=== PATIENT | female | born 1970 | race Caucasian/White ===

== ENCOUNTER → 2020-03-25 11:20 | Outpatient (CLI) | payer BC, SELFPAY ==
--- NOTE | 2020-03-24 10:24 | HP.PCM_ITS ---
History and Physical Date of Admission: 03/25/20 HISTORY AND PHYSICAL ? Anu Hameed 1970 ? ? REFERRING PHYSICIAN: Danitza Hernandez MD ? CHIEF COMPLAINT: Mammogram Abnormality ? HPI: The patient is a 50 year old female presents with abnormal right breast radiographs. She denies previous breast biopsies. She denies palpable breast masses. She denies nipple discharge. She denies breast pain. She denies previous breast infections She had nipple piercings which she discontinued about 2 years ago. ? Mammograms 03/18/2020 There are a grouped heterogeneous calcifications in the right breast at 9 o'clock in the retroareolar region. No other significant masses or calcifications are seen in the [address] IMPRESSION: SUSPICIOUS FINDING - BIOPSY SHOULD BE CONSIDERED The grouped heterogeneous calcifications in the right breast are suspicious of malignancy. ?A stereotactic biopsy is recommended. ? ? PAST MEDICAL HISTORY: TOB use ? ? PAST SURGICAL HISTORY Procedure Laterality Date ? SECTION HX ? ? ? TONSILLECTOMY HX ? ? Cervical biopsies and conization ? ? Current Outpatient Medications Medication Sig ? buPROPion SR (ZYBAN SR; WELLBUTRIN SR) 150 mg 12 hr tablet 1 tablet ? diazePAM (VALIUM) 5 mg tablet Take 1 tablet by mouth available for use prior to procedure for 1 day. ? ? ALLERGIES: Epi E-Z Pen and Penicillin V ? PERSONAL HISTORY: Social History ? Tobacco Use ? Smoking status: Current Every Day Smoker ? ? Packs/day: 0.50 ? Smokeless tobacco: Never Used Substance Use Topics ? Alcohol use: Yes ? ? Comment: occ ? Drug use: No ? FAMILY HISTORY: No breast or ovarian cancer known in family, grandparents had colon cancer and bone cancer ? ? REVIEW OF SYSTEMS: General - denies fevers, denies anorexia, denies weight loss Cardiovascular - denies chest pain, denies history of [place] Pulmonary - denies shortness of breath, denies coughing up blood Gastrointestinal - denies abdominal pain, denies hematemesis, hemorrhoids with BRBPR, alternating constipation and diarrhea intermittently depending of food she eats Neurological - denies seizures, denies chronic numbness/weakness of extremities, denies chronic headaches Genitourinary - denies burning with urination, denies blood in urine Hematological - denies spontaneous/prolonged bleeding Skin - denies nonhealing skin wounds Musculoskeletal - no new muscle/bone pain Endocrine - denies diabetes, no thyroid problems Psychological ? trying to quit TOB use on wellbutrin for this, denies [place] ucinations Obstetrical - Menarche onset at age 16, , breast feeding - denies, first at age 21, BCP use initially at age 19 for 3 years, LMP 03/18 - regular ? ? PHYSICAL EXAMINATION: General: The patient is 50 year old female, well nourished, well hydrated in no acute distress. The patient is oriented to time, place, and person. VITALS: Pulse 107, temperature 36.8 ?C (98.3 ?F), temperature source Temporal, resp. rate 18, weight 66.7 kg (147 lb), last menstrual period 03/18/2018, SpO2 96 %. Body mass index is 29.69 kg/m?. Head ? Normocephalic. EOM intact with sclera clear and no icterus noted. Mouth with mucus membranes moist. Neck - supple with no jugular venous distention noted. Trachea is midline. No carotid bruits noted. No thyroid enlargement or thyroid nodules detected. No masses noted. Chest/breast ? no asymmetry of breasts noted, no suspicious skin lesions noted, no nipple discharge and both nipples everted, no breast masses noted Lungs ? clear to auscultation. Normal breath sounds. No rales/rhonchi/wheezing noted. No labored breathing noted, such as retractions. No cough heard. Heart ? normal S1 and S2 auscultated. No rubs/clicks/murmurs noted. Regular rate. Abdomen ? soft and benign. Normal bowel sounds No abdominal bruits noted. Difficult to determine if any masses or organomegaly due to body habitus. Extremities ? no calf tenderness noted. No pitting edema noted. Skin ? normal skin integrity. Lymph ? no cervical adenopathy detected, no supraclavicular adenopathy detected, no axillary adenopathy detected Neurological ? gait normal, no focal deficits noted Psych ? calm and appropriate RADIOLOGIC STUDIES: As Noted ? IMPRESSION: abnormal right breast mammograms ? PLAN: I have discussed the above with the patient. I have reviewed the radiographs with the patient and pointed out the abnormalities to her I have offered right breast stereotactic biopsy I have explained the procedure to the patient. I have counseled the patient as to the risks of the procedure, including but not limited to: Infection (increased due to TOB use), bleeding, injury to any blood vessels/nerves, scar tissue, wound infections, complications of anesthesia, etc. ? the patient understands. The patient wishes to proceed. I have answered all questions to the patient?s satisfaction and the patient has no further questions. ? . Diagnoses: (R92.8) Abnormal mammogram (primary encounter diagnosis) (Z72.0) Tobacco use (F41.9) Anxiety Return to Clinic: The patient is instructed to follow-up with me after the procedure ? Precious Gallego MD
--- NOTE | 2020-03-25 13:00 | BRBX_PTH ---
PATIENT: SHERLYN PARRA LOC: [facility] U#:[id number] AGE/SX: 55/F ROOM: RE03/25/[address]: Dr. Precious Gallego MD : 1970 BED: DIS: SPEC #: [id number] RECD: 03/25/20 13:31 STATUS: LAURY TIP #: [id number] KAREN: 03/25/20 13:[address]: Precious Gallego DEPT: SURGICAL PATHOLOGY RECD BY: Flori Ramirez Tissues: Right breast, NOS Procedures: Surgery Specimen Level IV HEADER OPERATION: Right breast stereotactic biopsy PRE-OP DIAGNOSIS: Calcifications right breast 9 o'clock, retroareolar TISSUE SUBMITTED: Right breast core tissue ISCHEMIC TIME: 1 minute FIXATION TIME: 30.5 hours MICROSCOPIC DIAGNOSIS Right breast, calcification 9 o'clock, retroareolar, stereotactic core biopsy: Fibrocystic changes and intraductal hyperplasia without atypia. Focal changes consistent with radial scar. Negative for malignancy. Focal microcalcifications. See comment. SUKUMAR:clarisa 03/27/20 COMMENT Correlation with clinical, radiologic findings and appropriate follow up are necessary. Case has been reviewed in consultation with Dr. Uriostegiu who concurs with the above diagnosis. IDC:AM MICROSCOPIC DESCRIPTION Slides are reviewed. GROSS DESCRIPTION Received is one container labeled with the patient's name and not further designated. The specimen consists of multiple irregular fragments of light vance-yellow soft tissue that in aggregate measure 2.5 x 2 x 0.2 cm. The specimen is totally submitted in one cassette. / AM:clarisa 03/26/20 TC:5 CPT: 58043
--- NOTE | 2020-03-25 13:59 | PCM.OPRPT ---
Report of Operation Date of Procedure: 03/25/20 Pre-Operative Diagnosis: abnormal calcifications seen on right breast mammograms Post-Operative Diagnosis: same Surgery/Procedure Performed:: right stereotactic breast biopsy Description of Surgical Findings:: retroareolar calcifications seen on right breast mammograms Type of Anesthesia:: Local - 1% xylocaine Specimen's removed: right breast tissue Estimated Blood Loss (mL): < 1 ml Fluids Replaced: none Description of Procedure: After informed consent was given, the patient was brought into the Breast Biopsy suite. Appropriate time out protocol was followed. The patient was placed in the prone position on the stereotactic biopsy table. The patient?s right breast was then placed in the opening at the head of the biopsy table. A dermatology nurse practitioner compression mammogram was then obtained in the lateral view. The suspicious radiological lesion was thus identified. Stereo pictures of the lesion were then taken for XYZ coordinates. The Mammotome biopsy stylus was then positioned where it would be entering into the patient?s breast. The skin at this site was then cleansed with a surgical skin preparation. The skin and subcutaneous tissues at this site were then infiltrated with 1% xylocaine. A small skin incision was made with an 11 blade scalpel. The biopsy stylus was then positioned into the patient?s breast at the proper coordinates of depth. Using the Mammotome vacuum-assist device, several core samples of breast tissue were obtained. A specimen mammogram was the obtained. It revealed that the abnormal calcifications were within the specimen. I reviewed this personally and concluded that the tissue sampling was adequate. A hemostatic marker clip was then placed into the biopsy cavity and a dermatology nurse practitioner film revealed that it was properly deployed. The patient was then placed in the supine position and pressure was applied to the breast until no active bleeding was noted. A nylon suture was placed to reapproximate the skin. A unilateral mammogram in the CC and MLO view were then taken which revealed that the marker clip was in the same area as the previous suspicious lesion. The patient tolerated the procedure well and was discharged from the Breast Biopsy suite in good condition. - Complications none noted
== END ==
PROVIDERS: Referring Provider Surgery; Visit Provider Surgery
DX: N60.11 Diffuse cystic mastopathy of right breast (principal); R92.0 Mammographic microcalcification found on diagnostic imaging of breast; F17.200 Nicotine dependence, unspecified, uncomplicated
CPT/HCPCS: 19081; 88305; J7050

== ENCOUNTER 2020-04-15 10:02 | Day surgery (SDC) | payer BC, SELFPAY ==
--- NOTE | 2020-04-12 14:55 | PCM.HP.BLA ---
History and Physical Date of Admission: 04/15/20 HISTORY AND PHYSICAL ? Anu Hameed 1970 ? ? REFERRING PHYSICIAN: Danitza Hernandez MD ? CHIEF COMPLAINT: Mammogram Abnormality ? HPI: The patient is a 50 year old female s/p right stereotactic breast biopsy done on 03/25/2020 Pathology reveals: MICROSCOPIC DIAGNOSIS Right breast, calcification 9 o?clock, retroareolar, stereotactic core biopsy: Fibrocystic changes and intraductal hyperplasia without atypia. Focal changes consistent with radial scar. Negative for malignancy. Focal microcalcifications She denies previous breast biopsies. She denies palpable breast masses. She denies nipple discharge. She denies breast pain. She denies previous breast infections She had nipple piercings which she discontinued about 2 years ago. ? Mammograms 03/18/2020 There are a grouped heterogeneous calcifications in the right breast at 9 o'clock in the retroareolar region. No other significant masses or calcifications are seen in the breast. IMPRESSION: SUSPICIOUS FINDING - BIOPSY SHOULD BE CONSIDERED The grouped heterogeneous calcifications in the right breast are suspicious of malignancy. ?A stereotactic biopsy is recommended. ? ? PAST MEDICAL HISTORY: TOB use ? ? PAST SURGICAL HISTORY Procedure Laterality Date ? SECTION HX ? ? ? TONSILLECTOMY HX ? ? Cervical biopsies and conization ? ? Current Outpatient Medications Medication Sig ? buPROPion SR (ZYBAN SR; WELLBUTRIN SR) 150 mg 12 hr tablet 1 tablet ? diazePAM (VALIUM) 5 mg tablet Take 1 tablet by mouth available for use prior to procedure for 1 day. ? ? ALLERGIES: Epi E-Z Pen and Penicillin V ? PERSONAL HISTORY: Social History ? Tobacco Use ? Smoking status: Current Every Day Smoker ? ? Packs/day: 0.50 ? Smokeless tobacco: Never Used Substance Use Topics ? Alcohol use: Yes ? ? Comment: occ ? Drug use: No ? FAMILY HISTORY: No breast or ovarian cancer known in family, grandparents had colon cancer and bone cancer ? ? REVIEW OF SYSTEMS: General - denies fevers, denies anorexia, denies weight loss Cardiovascular - denies chest pain, denies history of [place] Pulmonary - denies shortness of breath, denies coughing up blood Gastrointestinal - denies abdominal pain, denies hematemesis, hemorrhoids with BRBPR, alternating constipation and diarrhea intermittently depending of food she eats Neurological - denies seizures, denies chronic numbness/weakness of extremities, denies chronic headaches Genitourinary - denies burning with urination, denies blood in urine Hematological - denies spontaneous/prolonged bleeding Skin - denies nonhealing skin wounds Musculoskeletal - no new muscle/bone pain Endocrine - denies diabetes, no thyroid problems Psychological ? trying to quit TOB use on wellbutrin for this, denies hallucinations Obstetrical - Menarche onset at age 16, , breast feeding - denies, first at age 21, BCP use initially at age 19 for 3 years, LMP 03/18 - regular ? ? PHYSICAL EXAMINATION: General: The patient is 50 year old female, well nourished, well hydrated in no acute distress. The patient is oriented to time, place, and person. VITALS: Pulse 107, temperature 36.8 ?C (98.3 ?F), temperature source Temporal, resp. rate 18, weight 66.7 kg (147 lb), last menstrual period 03/18/2018, SpO2 96 %. Body mass index is 29.69 kg/m?. Head ? Normocephalic. EOM intact with sclera clear and no icterus noted. Mouth with mucus membranes moist. Neck - supple with no jugular venous distention noted. Trachea is midline. No carotid bruits noted. No thyroid enlargement or thyroid nodules detected. No masses noted. Chest/breast ? no asymmetry of breasts noted, no suspicious skin lesions noted, no nipple discharge and both nipples everted, no breast masses noted, healed right breast biopsy site Lungs ? clear to auscultation. Normal breath sounds. No rales/rhonchi/wheezing noted. No labored breathing noted, such as retractions. No cough heard. Heart ? normal S1 and S2 auscultated. No rubs/clicks/murmurs noted. Regular rate. Abdomen ? soft and benign. Normal bowel sounds No abdominal bruits noted. Difficult to determine if any masses or organomegaly due to body habitus. Extremities ? no calf tenderness noted. No pitting edema noted. Skin ? normal skin integrity. Lymph ? no cervical adenopathy detected, no supraclavicular adenopathy detected, no axillary adenopathy detected Neurological ? gait normal, no focal deficits noted Psych ? calm and appropriate RADIOLOGIC STUDIES: As Noted ? ? IMPRESSION: radial scar - right breast by needle core biopsy ? PLAN: I have discussed the above with the patient. I have explained diagnosis of radial scar and that there is a small risk of adjacent neoplasm. I have offered open breast biopsy via wire localization versus continued observation with short term mammograms. I have explained the procedure to the patient. I have counseled the patient as to the risks of the procedure, including but not limited to: Infection (increased due to TOB use), bleeding, injury to any blood vessels/nerves, scar tissue, cosmetic deformity, wound infections, complications of anesthesia, etc. ? the patient understands. The patient was offered a surgery/procedure. The provider and patient have discussed in detail the risk of exposure to and/or potential harm posed by the COVID-19 virus with having a surgery/procedure at this time versus the risk of delaying the surgery/procedure. It is not possible to know either the risk of delaying the surgery or procedure or chance of getting an infection with perfect accuracy, but a joint decision was made between the patient and the provider to proceed at this time with the scheduled surgery/procedure. The patient wishes to proceed with surgery. I have answered all questions to the patient?s satisfaction and the patient has no further questions. ? . Diagnoses: (R92.8) Abnormal mammogram (primary encounter diagnosis) (Z72.0) Tobacco use (F41.9) Anxiety
--- NOTE | 2020-04-15 | BRBX_PTH ---
PATIENT: SHERLYN PARRA [place] [facility] [place][id number] AGE/SX: 50/F ROOM: RE04/15/[address]: Dr. Precious Gallego MD : 1970 BED: DIS: 04/15/2020 SPEC #: [id number] RECD: 04/15/20 14:17 STATUS: LAURY REJazmine #: [id number] KAREN: 04/15/20 00:[address]: Precious Gallego DEPT: SURGICAL PATHOLOGY RECD BY: Marlene Barron ENTERED: 04/15/20 14:37 SP TYPE: BREAST BX OTHR DR: Dr. Zaki Mckenzie MD Tissues: Right breast, NOS Procedures: Surgery Specimen Level V HEADER OPERATION: Right breast biopsy, NL PRE-OP DIAGNOSIS: Abnormal mammogram TISSUE SUBMITTED: Right breast mass MICROSCOPIC DIAGNOSIS Right breast mass, needle localization excisional biopsy: Intraductal hyperplasia with focal minimal atypia. Changes consistent with previous biopsy site. Negative for malignancy. See comment. SJ:clarisa 04/18/20 COMMENT The entire specimen is examined. Please make reference to previous specimen ([id number]) right breast, calcification 9 o'clock, retroareolar, stereotactic core biopsy with diagnosis of fibrocystic changes and intraductal hyperplasia without atypia, focal changes consistent with radial scar. This case has been reviewed in consultation with Dr. Uriostegui who concurs with the above diagnosis. MICROSCOPIC DESCRIPTION Slides are reviewed. GROSS DESCRIPTION Received in fixative is one container labeled with the patient's name and designated right breast mass. The specimen consists of an irregular fragment of vance-yellow fibrofatty tissue measuring 4.2 x 3 x 2.1 cm and contains a wire. The specimen is not oriented. The specimen is inked and serially sectioned to reveal yellow-white cut surfaces. No distinct mass lesion is identified. The specimen is serially sectioned along its narrow axis and totally submitted in ten cassettes after additional fixation. / AM:clarisa 04/16/20 TC:5 [facility]: [id number]
[2020-04-15 10:35] VITALS: BP 112/74; PULSE 67; RESP 16; TEMP 36.8; O2SAT 98; BMI 29.8
--- NOTE | 2020-04-15 10:41 | BI_ITS ---
SURGICAL BREAST SPECIMEN RADIOGRAPH CLINICAL: Document presence of mass in biopsy specimen. FINDINGS: Specimen shows presence of mass. Electronically Signed: Jam Liriano, at 14:40 EDT , Service support , BI/Breast Biopsy Specimen
--- NOTE | 2020-04-15 13:35 | DCINST_ITS ---
Discharge Diet: No Restrictions Discharge Activity: Return to Normal Activity, May not drive while taking narcotic pain medications. Call your doctor if your incision/area has: Continuous Slow Oozing, Foul Smelling Discharge Call your doctor if you observe: Fever of 101 or Higher Additional Instructions: Recommended pain control regimen - May take 600 mg ibuprofen (Motrin) and then in 3-4 hours, may take 650 mg acetaminophen (Tylenol), then in 3-4 hours may take 600 mg ibuprofen, then in 3- 4 hours may take 650 mg acetaminophen and so on for 2-3 days May take narcotic pain medication for pain that is not controlled by above and at night for comfort through the night Leave dressings in place May get dressings wet in shower - do not scrub in the area and pat dry Do not soak - no tub baths/swimming If dressing appears to be soiled/open at one end/no longer sealed - may remove dressing but leave site uncovered (do not replace with any type of dressing) - leave steristrips in place - may get wet but do not scrub in the area and pat dry For breast surgery - Wear supportive bra during the day Swelling and bruising will occur in the area, ice packs to the area may provide comfort, apply as tolerated Avoid excessive bouncing/jumping for at least two weeks Allergies/Adverse Reactions: Allergies epinephrine [From Epi E-Z Pen] Allergy (Verified 04/07/20 09:50) Shortness of breath TACHYCARDIA Penicillins [PCN] Allergy (Verified 04/07/20 09:50) Rash PER PT Medications to take at Discharge Bupropion HCl [Wellbutrin Xl] 150 mg PO DAILY 04/07/20 Primary Care Physician: SYLVAIN ENGEL [Other] Please Follow Up With: Precious Gallego MD - call When: to be seen in one week, please call for date and time, thank you
--- NOTE | 2020-04-15 13:36 | PCM.OPRPT ---
Report of Operation Date of Procedure: 04/15/20 Pre-Operative Diagnosis: radial scar of right breast Post-Operative Diagnosis: same Surgery/Procedure Performed:: placement of wire for localization of marker clip in right breast. right breast biopsy via wire localization Description of Surgical Findings:: dense breast tissue with fibrosis posterior to nipple/areolar complex - fibrocystic type changes, marker clip not seen in specimen mammogram hybrid tester: Vangie Landin Type of Anesthesia:: General Anesthesiologist: Ken Nickerson Specimen's removed: right breast tissue Estimated Blood Loss (mL): < 5 ml Fluids Replaced: see anesthesia noted Description of Procedure: After informed consent was given, the patient was brought into the Breast Stereotactic Radiology suite. Appropriate time out protocol was followed. The patient was then placed in the prone position on the [place] stereotactic table. The patient?s right breast was placed in the opening at the head of the table. A ware server compression mammogram was then obtained in the lateral view. The marker clip that was previously placed was identified. Stereo pictures of the lesion were then taken for XYZ coordinates. The Kopans needle was then positioned where it would be entering into the patient?s breast. The skin at this site was then cleansed with a surgical skin preparation. The skin and subcutaneous tissues at this site were then infiltrated with 1% xylocaine. The Kopans needle was then positioned into the patient?s breast at the proper coordinates of depth. A ware server film was obtained which revealed the wire in proper position. The patient was then placed in the supine position and the wire was taped into place. A unilateral mammogram in the CC and MLO view were then taken for use in the OR. The patient tolerated this portion of the procedure well and was brought to the AC awaiting surgery in the OR. The patient was then brought to the Operating Room. Appropriate time out protocol was followed. The patient was then placed on the operating table in the supine position. A wire had already been placed in the stereotactic biopsy room in the radiology department as described above. The right breast with the wire in placed was then prepped with a sterile surgical skin preparation and sterile surgical drapes were placed. The skin and subcutaneous tissues at the site of the breast lesion was then infiltrated with 1% xylocaine. A transverse curvilinear skin incision was then made at the border of the areolar complex laterally. This was done with a 15 blade scalpel and carried down through to the subcutaneous tissues. Hemostasis was controlled with electrocautery. The wire was then palpated out within the breast tissue. It was brought into the wound from outside. The breast tissue surrounding the wire was then carefully palpated out and from the surrounding tissues using electrocautery. The breast tissue, once from the breast, was then forwarded to the radiology department, where a specimen mammogram was obtained. The marker clip was not in the specimen, however, the whole tip of the wire was in the specimen. I personally reviewed this and made the determination that the tissue obtained was appropriately adequate. The pathology will bear out the appropriateness of the specimen. The breast tissue was then forwarded to pathology for analysis. The wound cavity was carefully examined. No further suspicious tissue was palpated or visualized. Hemostasis was carefully controlled with electrocautery. The subdermal tissues were then approximated with vicryl suture. The incision was then reapproximated close using running monocryl suture. Dermibond was applied for skin closure/coverage. Sponge, needle, and instrument count were verified and correct at the time of skin closure. A sterile dressing was then applied. The patient was then brought to the Recovery Room in stable condition. - Complications none noted - Admit VTE Documentation VTE Present on Admission: Yes VTE Mechan Device Prophylaxis: SCD's
[2020-04-15 14:35] VITALS: BP 112/74; BP 122/82; PULSE 69; RESP 16; TEMP 36.4; O2SAT 100
[2020-04-15] MEDS: Lactated Ringers 1,000 ML 75 ML IV (14:42)
[2020-04-15 14:45] VITALS: BP 112/74; BP 122/82; PULSE 62; RESP 16; O2SAT 96
[2020-04-15 14:56] VITALS: BP 112/74; BP 114/78; PULSE 65; RESP 16; TEMP 36.4; O2SAT 97
[2020-04-15] MEDS: HYDROcodone Bitartrate/Apap 5/325 Tablet PO (15:18)
[2020-04-15 15:25] VITALS: BP 112/74; BP 120/74; PULSE 71; RESP 16; TEMP 36.7; O2SAT 98
== END 2020-04-15 15:28 | disposition home or self-care (01) ==
LOC: SDC 10:03 → AC 10:03
PROVIDERS: Anesthesiology; Referring Provider Surgery; Visit Provider Surgery
PROC: (CPT 19125; principal; 2020-04-15 13:15)
DX: N60.91 Unspecified benign mammary dysplasia of right breast (principal); L90.5 Scar conditions and fibrosis of skin; Z11.59 Encounter for screening for other viral diseases; F41.9 Anxiety disorder, unspecified; F32.9 Major depressive disorder, single episode, unspecified; Z85.41 Personal history of malignant neoplasm of cervix uteri; Z79.899 Other long term (current) drug therapy; F17.200 Nicotine dependence, unspecified, uncomplicated
CPT/HCPCS: 19125; 19281; 76098; 87635; 88305; 88307; C9803; J7120; U0003

== ENCOUNTER → 2022-07-27 | Outpatient (CLI) | payer OTHER, SELFPAY ==
--- NOTE | 2022-07-26 | FLU_PTH ---
PATIENT: SHERLYN PARRA LOC: [facility] U#:[id number] AGE/SX: 52/F ROOM: RE07/27/[address]: Dr. Precious Gallego MD : 1970 BED: DIS: 07/27/2022 SPEC #: [id number] RECD: 07/27/22 12:22 STATUS: LAURY TIP #: [id number] KAREN: 07/26/22 00:[address]: Precious Gallego DEPT: CYTOLOGY RECD BY: Chayito Hernandez Tissues: Thyroid gland, NOS Procedures: Special Stain Group II Surgery Specimen Level IV Cytospin Fluid Cytology Other HEADER OPERATION: Fine needle aspiration PRE-OP DIAGNOSIS: Abnormal ultrasound TISSUE SUBMITTED: A - FNA right thyroid nodule fluid, B - FNA right thyroid nodule x8 slides DIAGNOSIS CYTOLOGY A. 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 Adequate for evaluation. B. Right thyroid nodule, fine needle aspiration (smears): Follicular lesion of undetermined significance ([place] Category III). Adequate for evaluation. See comment. SUKUMAR:clarisa 07/28/2022 COMMENT B. Smears also show drying artifact. Correlation with clinical, radiologic findings and appropriate follow up are necessary. Multi-gene next-generation sequencing panel is recommended for this lesion. This recommendation was communicated to the physician's office. Case has been reviewed in consultation with Dr. Uriostegui who concurs with the above diagnosis. IDC:AM CYTOLOGY STUDY Slides are reviewed. CYTOLOGY GROSS A - Received is 30 ml of light brown cloudy fluid labeled with the patient's name and and designated per the requisition as right thyroid. Submitted for cytology preparation including cell block. B - Received are eight smears labeled with the patient's name and designated per the requisition as right thyroid. Submitted for staining. / clarisa 07/27/2022 TC:5 CPT: 50926, 88556
== END | disposition home or self-care (01) ==
PROVIDERS: Visit Provider Surgery
DX: O28.3 Abnormal ultrasonic finding on antenatal screening of mother (principal)
CPT/HCPCS: 88108; 88161; 88305; 88313